=== PATIENT | male | born 1975 | race Caucasian/White ===

== ENCOUNTER 2017-04-02 18:56 | Emergency (ER) | payer MEDICAID ==
[~2017-04-02] VITALS: Ht 175.3 cm; Wt 111.9 kg
[2017-04-02 20:13] VITALS: BP 148/92
== END 2017-04-02 20:15 | disposition home or self-care (01) ==
LOC: ED 20:09
DX: H92.02 Otalgia, left ear (principal); H91.92 Unspecified hearing loss, left ear; I10 Essential (primary) hypertension; E11.9 Type 2 diabetes mellitus without complications
CPT/HCPCS: 99281

== ENCOUNTER 2017-11-23 09:01 | Emergency (ER) | payer MEDICAID ==
[~2017-11-23] VITALS: Ht 172.7 cm; Wt 106.0 kg
[2017-11-23 09:06] VITALS: BP 137/94
== END 2017-11-23 11:16 | disposition home or self-care (01) ==
LOC: ED 09:43
DX: G89.11 Acute pain due to trauma (principal); M25.512 Pain in left shoulder; M25.532 Pain in left wrist; W01.0XXA Fall on same level from slipping, tripping and stumbling without subsequent striking against object, initial encounter; Y93.89 Activity, other specified; Y99.8 Other external cause status; Y92.89 Other specified places as the place of occurrence of the external cause
CPT/HCPCS: 99284

== ENCOUNTER 2018-05-31 16:07 | Emergency (ER) | payer MEDICAID ==
[~2018-05-31] VITALS: Ht 175.3 cm; Wt 100.9 kg
[2018-05-31 16:11] VITALS: BP 131/89
--- NOTE | 2018-05-31 16:31 | NUR ---
pt to ed for si. pt states recent attempt to strangle self with cord. edmd to bedside for assessment. recommeds inpatient treatment. pt inquiring about being allowed to smoke at facility. then stated, "Tell the doctor that I won't hurt myself if I can go home. I can't do this right now." pt undressed completely. 2 bags of belongings labeled and placed in locker. room locked down and secure with tech in [place] for continuous monitoring. lab at bedside. breathylizer completed. awaiting ua and telepsych consult at this time.
[2018-05-31 16:44] LABS: BASOPHILS # (AUTO) 0.11 x10^3/uL (0-0.1); BASOPHILS % (AUTO) 2 % (0-1); EOSINOPHILS # (AUTO) 0.17 x10^3/uL (0-0.4); EOSINOPHILS % (AUTO) 3 % (1-7); LYMPHOCYTES # (AUTO) 1.96 x10^3/uL (1-3.4); LYMPHOCYTES % (AUTO) 29 % (22-44); MD NO; MEAN CORPUSCULAR HEMOGLOBIN 29.7 pg (27.5-34.5); MEAN CORPUSCULAR HGB CONC 33.9 g/dL (33.2-36.2); MEAN CORPUSCULAR VOLUME 87.7 fL (81-97); MONOCYTES # (AUTO) 0.59 x10^3/uL (0.2-0.8); MONOCYTES % (AUTO) 9 % (2-9); NEUTROPHILS # (AUTO) 4.01 x10^3/uL (1.8-6.8); NEUTROPHILS % (AUTO) 59 % (42-75); PLATELET COUNT 272 x10^3/uL (130-400); RED BLOOD COUNT 5.15 x10^6/uL (4.38-5.82); RED CELL DISTRIBUTION WIDTH 13.3 % (9.4-14.8)
[2018-05-31 16:54] LABS: ALBUMIN 3.5 g/dL (3.4-5.0); ANION GAP 8 mmol/L (5-15); CHLORIDE 111 mmol/L (98-107); SALICYLATE LEVEL 2.1 mg/dL (2.8-20.0)
[2018-05-31 16:57] LABS: ALANINE AMINOTRANSFERASE 44 U/L (12-78); ALKALINE PHOSPHATASE 141 U/L (45-117); BILIRUBIN,TOTAL 0.3 mg/dL (0.2-1.0); CREATININE 0.85 mg/dL (0.7-1.3); TOTAL PROTEIN 7.2 g/dL (6.4-8.2)
[2018-05-31 16:58] LABS: ACETAMINOPHEN < 2 mcg/mL (10-30)
[2018-05-31 17:27] LABS: AMPHETAMINE SCREEN, URINE Positive (Negative); BARBITURATE SCREEN, URINE Negative (Negative); BENZODIAZEPINE SCREEN, URINE Negative (Negative); CANNABINOID SCREEN, URINE Negative (Negative); COCAINE SCREEN, URINE Negative (Negative); METHADONE SCREEN, URINE Negative (Negative); OPIATE SCREEN, URINE Negative (Negative)
--- NOTE | 2018-05-31 17:40 | NUR ---
pt beginning to escalate after family visit. pt attempting to leave er. able to calm pt and walk him abck to room. pt understands that he is currently on a 72 hour hold and all means to keep him comfortable will be made. water provided. pt not hungry now. pt back in bed at this time. lights turned down per pt request. nicotine patch to be requested from md. winter in [place] for continuous monitoring.
[2018-05-31] MEDS ORDERED: NICOTINE 21 MG/24 HR PATCH.TD24 ONE (17:50)
[2018-05-31] MEDS ORDERED: NICOTINE 21 MG/24 HR PATCH.TD24 TD ONE (18:00)
--- NOTE | 2018-05-31 18:19 | NUR ---
[facility] CALLED FOR ASSESSMENT
--- NOTE | 2018-05-31 18:40 | NUR ---
[facility] CALLED BACK, WILL NOTIFY RADHA OF ASSESSMENT, SHE SHOULD BE HERE WITHIN THE HOUR
--- NOTE | 2018-05-31 18:59 | NUR ---
LUNCH RN: PT UPDATED ON POC. DIET TRAY ORDERED, PT GIVEN ADDITIONAL BLANKET AND WATER. WALKING AROUND UNIT WITH SITTER. CALM AND COOPERATIVE WITH STAFF AT THIS TIME. AWAITING [facility] FOR CONSULT AND MED RECOMMENDATION.
--- NOTE | 2018-05-31 19:17 | NUR ---
diet tray ordered for pt. pt eating calmly in room. no needs at this time. sitter in [place] for continuous monitoring.
[2018-05-31] MEDS ORDERED: LORazepam 1MG TABLET PO PRN (20:00)
[2018-05-31] MEDS ORDERED: LORazepam 1MG TABLET ONE (20:28)
--- NOTE | 2018-05-31 20:34 | NUR ---
PT BECAME AGGITATED AFTER CONVERSATION WITH [facility] WHEN HE WAS TOLD HE MAY BE MOVED TO ANOTHER FACILITY. PT STATES HE JUST WANTS TO GO HOME. 72 HOUR HOLD DISCUSSED AGAIN WITH PT. MEHDI TO BEDSIDE TO TALK WITH PT. PT WAS COOPERATIVE WITH MEDS, PT MEDICATED. SITTER IN [place] FOR CONTINUOUS MONITORING.
--- NOTE | 2018-05-31 21:03 | NUR ---
THROUGHPUT: PACKET FAXED TO [facility], CONFIRMED RECEIVED. WILL LIKELY HAVE BED TONIGHT.
--- NOTE | 2018-05-31 21:46 | NUR ---
pt resting in bed with lights dimmed. call light within reach. no needs at this time.
--- NOTE | 2018-05-31 22:24 | NUR ---
report to Baby, rn at [facility]. all questions answered.
--- NOTE | 2018-05-31 23:10 | NUR ---
PT RESTING ON GURNEY WITH EYES CLOSED. RR EVEN AND UNLABORED. PT IS CALM AND COOPERATIVE ATT. ROOM IS SECURED. SITTER OUTSIDE OF ROOM FOR SAFETY. AWAITING [facility] TO TAKE TO [facility]
--- NOTE | 2018-05-31 23:14 | NUR ---
called [facility] number [phone] called [facility] DR. Burton accepting and RN is Gray pt will leave at 0230to [facility] per [facility] staff
--- NOTE | 2018-06-01 01:44 | NUR ---
NO CHANGE IN PT STATUS. PT RESTING ON GURNEY. RR EVEN AND UNLABORED, PT IS CALM AND COOPERATIVE ATT. ROOM IS SECURED. SITTER OUTSIDE OF ROOM FOR SAFETY. AWAITING [facility] AT 0230 TO TRANSPORT TO [facility]
== END 2018-06-01 02:49 ==
LOC: ED 16:29 → EDIP 20:01 → UNDOADMIN 20:01 → ED 06-01 02:49
DX: R45.851 Suicidal ideations (principal); F17.200 Nicotine dependence, unspecified, uncomplicated; F19.14 Other psychoactive substance abuse with psychoactive substance-induced mood disorder
CPT/HCPCS: 36415; 80053; 80307; 80329; 85025; 99285; G0480

== ENCOUNTER 2018-07-28 05:23 | Emergency (ER) | payer MEDICAID ==
[~2018-07-28] VITALS: Ht 175.3 cm; Wt 100.3 kg
[2018-07-28 05:24] VITALS: BP 140/80
--- NOTE | 2018-07-28 05:42 | NUR ---
LEFT SIDE DENTL ABCESS ONSET 36 HRS. AGO.
== END 2018-07-28 06:02 | disposition home or self-care (01) ==
LOC: ED 06:01
DX: K04.7 Periapical abscess without sinus (principal); K08.89 Other specified disorders of teeth and supporting structures
CPT/HCPCS: 99283

== ENCOUNTER 2021-01-23 17:27 | Emergency (ER) | payer MEDICAID ==
[~2021-01-23] VITALS: Ht 172.7 cm; Wt 105.6 kg
[2021-01-23 17:46] VITALS: BP 147/102
[2021-01-23] MEDS ORDERED: LIDOCAINE-MPF 1%, 5ML INFIL ONE (18:00)
[2021-01-23] MEDS ORDERED: DIPH,PERTUSS(ACELL),TET VAC/PF 0.5 ML IM-VACC ONE (18:00)
--- NOTE | 2021-01-23 20:00 | NUR ---
pt signed out ama with reg desk
== END 2021-01-23 20:01 | disposition left against medical advice (07) ==
LOC: ED 17:45
DX: L02.01 Cutaneous abscess of face (principal)
CPT/HCPCS: 99281

== ENCOUNTER 2021-01-24 14:48 | Emergency (ER) | payer MEDICAID ==
--- NOTE | 2021-01-24 15:10 | NUR ---
CALLED FOR PT. PT NOT IN LOBBY
--- NOTE | 2021-01-24 15:56 | NUR ---
CALLED FOR PT. PT NOT IN LOBBY
--- NOTE | 2021-01-24 19:30 | NUR ---
CALLED PT. NOT IN LOBBY. HAS BEEN HOURS SINCE FIRST CHECKED IN. WILL REMOVE PT FROM BOARD AT THIS TIME.
== END 2021-01-24 19:32 | disposition left against medical advice (07) ==
LOC: ED 14:53
DX: K08.89 Other specified disorders of teeth and supporting structures (principal); Z53.21 Procedure and treatment not carried out due to patient leaving prior to being seen by health care provider